=== PATIENT | female | born 1990 | race Caucasian/White ===

== ENCOUNTER 2016-08-08 05:59 | Inpatient (IN) | payer BC, OTHER ==
[2016-08-08] MEDS: RINGERS SOLUTION,LACTATED 1,000 ML IV PRN ×2 (06:30→10:25)
[2016-08-08] MEDS ORDERED: OXYTOCIN 20 UNITS in RINGERS SOLUTION,LACTATED 1,000 ML IV ONE (06:52)
[2016-08-08] MEDS ORDERED: RINGERS SOLUTION,LACTATED 1,000 ML IV PRN (06:57)
[2016-08-08 07:23] LABS: Hematocrit 33.2 % (37.0-47.0); Hemoglobin 11.4 gm/dL (12.5-16.0); Mean Cell Volume 92.7 fl (78-100); Mean Corpuscular Hemoglobin 31.8 pg (27-31); Mean Corpuscular Hgb Conc 34.3 g/dl (32-36); Mean Platelet Volume 12.6 fl (6.0-9.5); Neutrophil # 9.2 K/mm3 (1.3-6.0); Neutrophil % 74.1 % (42-75.0); Platelet Count 110 K/mm3 (150-450); Red Blood Count 3.58 M/mm3 (4.2-5.4); Red Cell Distribution Width 14.2 % (11.5-14.0); White Blood Count 12.4 K/mm3 (4.0-10.5)
[2016-08-08] MEDS ORDERED: ceFAZolin SODIUM/DEXTROSE,ISO 2 GM/50 ML BAG IV ONE (10:00)
[2016-08-08] MEDS ORDERED: RINGERS SOLUTION,LACTATED 1,000 ML IV ONE (11:45)
[2016-08-08] MEDS ORDERED: diphenhydrAMINE HCL 25 MG CAPSULE PO PRN (12:09)
[2016-08-08] MEDS ORDERED: ONDANSETRON HCL/PF 2 MG/ML VIAL IV PRN (12:09)
[2016-08-08] MEDS ORDERED: SIMETHICONE 80 MG TAB.CHEW PO PRN (12:09)
[2016-08-08] MEDS ORDERED: PROMETHAZINE HCL 12.5 MG in DEXTROSE 5 % IN WATER 50 ML IV PRN ×2 (12:09)
[2016-08-08] MEDS ORDERED: SENNOSIDES 8.6 MG TABLET PO PRN (12:09)
[2016-08-08] MEDS ORDERED: BISACODYL 10 MG SUPP.RECT RC PRN (12:09)
--- NOTE | 2016-08-08 12:09 | OR ---
Operative Report - Dictated Report Narrative: DATE OF PROCEDURE: 08/08/2016 PROCEDURE: 1. Repeat low transverse section ANESTHESIA: Spinal. PREOPERATIVE DIAGNOSES: 1. Intrauterine at 39 2/7 weeks 2. Previous c-sections x 1 POSTOPERATIVE DIAGNOSES: 1. Intrauterine at 39 2/7 weeks 2. Previous c-sections x 1 SURGEON: Aida German M.D. INSPECTOR TOOL: [place] Leavitt FINDINGS: 1. Male infant in cephalic presentation. clear amniotic fluid. Weight 4028 g, 9/9, Time of delivery: 10:37 2. Normal uterus, and normal bilateral ovaries and tubes SPECIMENS: none DRAIN: Marin to gravity. URINE OUTPUT: 125 ml. BLOOD LOSS: 400 ml. IV FLUIDS: 1750 ml COMPLICATIONS: None. Description of Operative Procedure: The patient consented prior to the operation and was taken to the operating room. Spinal anesthesia was performed without complications. The patient was then placed in the dorsal supine position with leftward tilt. Sequential compression device was placed on the lower extremities and a Marin catheter was placed into the bladder using sterile technique. Two grams of Ancef was given prior to the start of anesthesia. The abdomen was prepped with Chloraprep and draped in the usual sterile fashion. A time-out procedure was conducted to confirm the correct patient for the correct procedure. Anesthesia was tested and appeared adequate. A Pfannenstiel incision was made close to her prior c/s scar with a scalpel. The incision was carried through the subcutaneous layer to the fascia. The fascia was nicked at the midline and extended laterally with Holland scissors. The upper edge of the fascia incision was grasped with two Cherrie clamps, elevated, and the underlying rectus muscles were dissected off. The Cherrie clamps were repositioned to the lower edge of the fascia incision, which was tented up and dissected off from the rectus muscles. The rectus muscles were held up with Allis clamp and the midline between the rectus muscles was dissected sharply with the scalpel. The peritoneum was entered sharply with a scalpel. The peritoneal incision was extended superiorly and inferiorly with good visualization of the bladder. A bladder blade was inserted. The vesicouterine peritoneum was identified, grasped with a smooth pick-ups, and entered sharply with Matzenbaum scissors. The incision was extended laterally, and a bladder flap was created. The bladder blade was repositioned. The lower uterine segment was incised in a transverse fashion with the scalpel. The incision was extended laterally by stretching. The bladder blade was removed. The amniotic sac was ruptured with clear fluid. The baby was in cephalic presentation. The head was elevated through the incision. Fundal pressure was applied and the baby was delivered atraumatically. Baby cried immediately after . The cord was clamped and cut. The baby was handed off to the vocational childcare teacher and nurse in attendance. Cord blood was obtained. The placenta was removed manually. The uterus was exteriorized, and cleared off clots and membrane. The uterine incision was closed with 0 vicryl in a running-lock fashion. A second imbricating layer was placed with 2-0 Vicryl in a continuous non-lock fashion. Good hemostasis and reapproximation were obtained. The posterior cul-de-sac was cleared off clots and fluid. The uterus was returned to the abdomen. The gutters were cleared of blood clots and fluid. The peritoneum was closed with 2-0 Vicryl. The rectus muscle was inspected and found hemostatic. The lower part of the rectus muscles were brought together with two figure of eight sutures to keep the bladder from exposing under the fascia. The fascia was reapproximated with #1 Vicryl in running fashion. The subcutaneous layer was irrigated with saline. The subcutaneous layer was closed with 2-0 vicryl interruptedly. The skin was closed with 3-0 Monocryl suture in a subcuticular fashion. Benzoin was applied to the incision edges. The incision was covered with Steri strips, Telfa, ABD and adhesive pressure dressing tape. The patient tolerated the procedure well. Sponge, lap, needle and instrument counts were correct x 2. The patient received an abdominal tap block under u/s guidance by anesthesia for postop pain management. The patient was taken to the recovery room in stable condition. Aida German MD History for MU Definition: * The number of deliveries resulting in a live the patient experienced prior to current hospitalization * The previous delivery of live twins or any live multiple gestation is considered one live event. *If primagravida or nulliparous is documented select zero for the number of previous live births. Live Events: 1
[2016-08-08] MEDS: HYDROcodone/ACETAMINOPHEN 1 EACH TABLET PO PRN ×4 (13:16→23:15)
[2016-08-08] MEDS: IBUPROFEN 800 MG TABLET PO PRN ×2 (17:08→23:15)
[2016-08-08] MEDS: DOCUSATE SODIUM 100 MG CAPSULE PO SCH (21:22)
[2016-08-09] MEDS: HYDROcodone/ACETAMINOPHEN 1 EACH TABLET PO PRN ×6 (02:35→23:08)
[2016-08-09] MEDS: IBUPROFEN 800 MG TABLET PO PRN ×3 (05:39→18:31)
[2016-08-09 06:22] LABS: Hematocrit 34.4 % (37.0-47.0); Hemoglobin 11.2 gm/dL (12.5-16.0); Mean Cell Volume 95.8 fl (78-100); Mean Corpuscular Hemoglobin 31.2 pg (27-31); Mean Corpuscular Hgb Conc 32.6 g/dl (32-36); Mean Platelet Volume 12.4 fl (6.0-9.5); Neutrophil # 11.6 K/mm3 (1.3-6.0); Neutrophil % 77.5 % (42-75.0); Platelet Count 117 K/mm3 (150-450); Red Blood Count 3.59 M/mm3 (4.2-5.4); Red Cell Distribution Width 14.6 % (11.5-14.0)
[2016-08-09] MEDS: DOCUSATE SODIUM 100 MG CAPSULE PO SCH ×2 (08:48→20:17)
--- NOTE | 2016-08-09 08:57 | PN ---
Subjective - Date and Time Seen Date: 08/09/16 Subjective Narrative: post op day 1, s/p repeat c/s. pain controlled. canas out and voided. ambulating and tolerating diet. breast feeding. normal lochia. Objective - Vitals Vitals: Last Vital Signs Temp 35.8 C L 08/09/16 07:15 Pulse 72 08/09/16 07:15 Resp 16 08/09/16 07:15 BP 125/62 08/09/16 07:15 Pulse Ox 100 08/09/16 07:15 - Abnormal Lab Findings Abnormal Lab Findings: Abnormal Lab Results 08/09/16 Range/Units 06:10 WBC 15.0 H D (4.0-10.5) K/mm3 RBC 3.59 L (4.2-5.4) M/mm3 Hgb 11.2 L (12.5-16.0) gm/dL Hct 34.4 L (37.0-47.0) % MCH 31.2 H (27-31) pg RDW 14.6 H (11.5-14.0) % Plt Count 117 L (150-450) K/mm3 MPV 12.4 H (6.0-9.5) fl Immature Gran % (Auto) 0.60 H (0.001-0.429) % Immature Gran # (Auto) 0.09 H (0.000-0.0310) K/mm3 Neutrophils % 77.5 H (42-75.0) % Lymphocytes % 16.2 L (20-51) % Neutrophils # 11.6 H (1.3-6.0) K/mm3 - Exam Constitutional: Present: Alert, Oriented x3, Cooperative Respiratory: Present: no respiratory distress Cardiovascular/Chest: Present: normal peripheral pulses Abdomen: Present: soft, nondistended, other - fundus firm. Incision dressing dry and clean. Extremity: Present: normal range of motion, no calf tenderness, pedal edema - trace Skin Exam: Present: normal color, warm/dry, no cyanosis Eye contact: Present: cooperative, good eye contact, normal speech Cauti Physician Documentation - Urinary Catheter Management Urethral ([place]) Date of Insertion: 08/08/16 Time of Insertion: 10:30 Date of Removal: 08/09/16 Time of Removal: 01:30 Assessment/Plan Plan Narrative: A: post op day 1, s/p repeat c/s, stable and well. Plan: routine post op care. ambulation encouraged. pain meds prn. Aida German MD
[2016-08-10] MEDS: IBUPROFEN 800 MG TABLET PO PRN ×4 (01:59→21:41)
[2016-08-10] MEDS: HYDROcodone/ACETAMINOPHEN 1 EACH TABLET PO PRN ×2 (05:37→11:35)
[2016-08-10] MEDS: DOCUSATE SODIUM 100 MG CAPSULE PO SCH ×2 (09:08→21:41)
[2016-08-10] MEDS ORDERED: oxyCODONE HCL/ACETAMINOPHEN 1 TAB TABLET PO PRN (11:41)
[2016-08-10] MEDS: oxyCODONE HCL/ACETAMINOPHEN 1 TAB TABLET PO PRN ×4 (12:42→21:42)
--- NOTE | 2016-08-10 18:16 | PN ---
Subjective - Date and Time Seen Date: 08/10/16 Subjective Narrative: post op day 2, s/p repeat c/s pain was not well controlled on [place] and now switched to percocet and doing better. . normal lochia. ambulating well. Objective - Vitals Vitals: Last Vital Signs Temp 36.7 C 08/10/16 11:37 Pulse 92 08/10/16 11:37 Resp 16 08/10/16 11:37 BP 109/75 08/10/16 11:37 Pulse Ox 96 08/10/16 11:37 - Exam Constitutional: Present: Alert, Oriented x3, Cooperative Respiratory: Present: no respiratory distress Cardiovascular/Chest: Present: normal peripheral pulses Abdomen: Present: soft, nondistended, other - fundus firm and incision dry and clean. Extremity: Present: normal range of motion, no calf tenderness, pedal edema Skin Exam: Present: normal color, warm/dry, no cyanosis Eye contact: Present: cooperative, good eye contact, normal speech Cauti Physician Documentation - Urinary Catheter Management Urethral (Marin) Date of Insertion: 08/08/16 Time of Insertion: 10:30 Date of Removal: 08/09/16 Time of Removal: 01:30 Assessment/Plan Plan Narrative: A: post op day 2, s/p repeat c/s, stable and well. Plan: rountine post op care. ambulation encouraged. Aida German MD
[2016-08-11] MEDS: oxyCODONE HCL/ACETAMINOPHEN 1 TAB TABLET PO PRN ×4 (01:02→12:09)
[2016-08-11] MEDS: IBUPROFEN 800 MG TABLET PO PRN ×2 (04:38→12:09)
[2016-08-11] MEDS: DOCUSATE SODIUM 100 MG CAPSULE PO SCH (08:42)
--- NOTE | 2016-08-11 08:56 | PN ---
Subjective - Date and Time Seen Date: 08/11/16 Subjective Narrative: post op day 3, s/p repeat c/s doing well. pain controlled. normal lochia. ambulating well. Objective - Vitals Vitals: Last Vital Signs Temp 36.8 C 08/11/16 01:11 Pulse 81 08/11/16 01:11 Resp 18 08/11/16 01:11 BP 125/67 08/11/16 01:11 Pulse Ox 99 08/11/16 01:11 - Exam Constitutional: Present: Alert, Oriented x3, Cooperative Respiratory: Present: no respiratory distress Cardiovascular/Chest: Present: normal peripheral pulses Abdomen: Present: soft, nondistended, other - fundus firm and incision dry and clean. Extremity: Present: normal range of motion, no calf tenderness, pedal edema Skin Exam: Present: normal color, warm/dry, no cyanosis Eye contact: Present: cooperative, good eye contact, normal speech Cauti Physician Documentation - Urinary Catheter Management Urethral (Marin) Date of Insertion: 08/08/16 Time of Insertion: 10:30 Date of Removal: 08/09/16 Time of Removal: 01:30 Assessment/Plan Plan Narrative: A: post op day 3, s/p repeat c/s, stable and well. Plan: will discharge home today. Aida German MD
[2016-08-11 10:20] VITALS: BP 119/79
== END 2016-08-11 13:30 | disposition home or self-care (01) | DRG 766 ==
LOC: OB 05:59
PROVIDERS: ADMIT Obstetrics & Gynecology; ATTEND Obstetrics & Gynecology
PROC: 4A1HXCZ Monitoring of Products of Conception, Cardiac Rate, External Approach (ICD-10-PCS; 2016-08-08)
PROC: 10D00Z1 Extraction of Products of Conception, Low, Open Approach (ICD-10-PCS; principal; 2016-08-08 10:00)
DX: O82 Encounter for cesarean delivery without indication (principal); Z3A.39 39 weeks gestation of pregnancy; Z37.0 Single live birth